=== PATIENT | female | born 1975 | race African-American/Black ===

== ENCOUNTER 2017-10-07 16:25 | Emergency (ER) | payer OTHER ==
[2017-10-07 16:35] VITALS: BP 139/95; PULSE 107; TEMP 98.4; BMI 24.9
--- NOTE | 2017-10-07 17:42 | PDOC ---
History of Present Illness - General Chief Complaint: Toothache Stated Complaint: TOOTH ACHE Time Seen by Provider: 10/07/17 16:55 - History of Present Illness Initial Comments: 10/07/17 17:42 CHIEF COMPLAINT: multiple symptoms HISTORY OF PRESENT ILLNESS: 42 yo F with hx of HTN presents to [facility] with tooth pain, "clogged ears," and diarrhea x 2 days. Initially patient states that these symptoms began 3 days ago but then later stated that the symptoms have been persistent for "a few months." She reports chills but no fever and that "I might have vomited a few times in the last few months." PAST MEDICAL HISTORY: Denies past medical history FAMILY HISTORY: Denies SOCIAL HISTORY: Daily smoker, daily alcohol intake. SURGICAL HISTORY: Denies ALLERGIES: doxycycline REVIEW OF SYSTEMS General/Constitutional: Denies fever or chills. Denies weakness, weight change. HEENT: "My ears are clogged." "I have a sore throat." Denies change in vision. Cardiovascular: Denies chest pain or shortness of breath. Respiratory: Denies wheezing, or hemoptysis. Gastrointestinal: Diarrhea. Genitourinary: Denies dysuria, frequency, or change in urination. Musculoskeletal: Denies joint or muscle swelling or pain. Denies neck or back pain. Skin and breasts: Denies rash or easy bruising. Neurologic: Denies headache, vertigo, loss of consciousness, or loss of sensation. PHYSICAL EXAM General Appearance: Well-appearing, appropriately dressed. No apparent distress. HEENT: Cerumen impaction b/l. EOMI, PERRLA. No conjunctival pallor. No photophobia, scleral icterus. Respiratory/Chest: Lungs CTAB. No shortness of breath, chest tenderness, respiratory distress, accessory muscle use. No crackles, rales, rhonchi, stridor , wheezing, dullness Cardiovascular: RRR. S1, S2. Gastrointestinal/Abdominal: Hyperactive bowel sounds. Abdomen soft, non- distended. No tenderness or rebound tenderness. No organomegaly, pulsatile mass, guarding, hernia, hepatomegaly, splenomegaly. Musculoskeletal/Extremities: Normal inspection. FROM of all extremities, normal capillary refill. Pelvis Stable. No CVA tenderness. No tenderness to extremities, pedal edema, swelling, erythema or deformity. Integumentary: Appropriate color, dry, warm. No cyanosis, erythema, jaundice or rash Neurologic: die turner II-XII intact. Fully oriented, alert. Appropriate mood/affect. Motor strength 5/5. No appreciable EOM palsy, facial droop or sensory deficit. 10/07/17 17:54 Past History - Past Medical History Allergies/Adverse Reactions: Allergies Allergy/AdvReac Type Severity Reaction Status Date / Time doxycycline hyclate Allergy Vomiting Verified 10/07/17 16:35 [From Doryx] Home Medications: Ambulatory Orders No Home Medications 0 dose .ROUTE UTDICT 11/07/12 Amlodipine Besylate 5 mg PO DAILY 10/07/17 Amoxicillin/Potassium Clav [Augmentin 875-125 Tablet] 1 each PO BID #14 tablet 10/07/17 Hydrochlorothiazide [Hctz -] 25 mg PO DAILY 10/07/17 Pseudoephedrine HCl [Sudafed 12 Hour] 120 mg PO BID #10 tablet.er 10/07/17 COPD: No HTN: Yes - Suicide/Smoking/Psychosocial Hx Smoking Status: Yes Smoking History: Never smoked Number of Cigarettes Smoked Daily: 5 Information on smoking cessation initiated: No *Physical Exam - Vital Signs Last Vital Signs Temp Pulse Resp BP Pulse Ox 98.4 F 107 H 20 139/95 99 10/07/17 16:32 10/07/17 16:32 10/07/17 16:32 10/07/17 16:32 10/07/17 16:32 Medical Decision Making - Medical Decision Making 10/07/17 18:00 42 yo F with hx of HTN presents to [facility] with tooth pain, "clogged ears," and diarrhea x 2 days. Patient is well appearing on exam, but does have impacted cerumen to b/l ears. -Strep swab sent *DC/Admit/Observation/Transfer Diagnosis at time of Disposition: Tooth pain, Strep pharyngitis, Impacted cerumen of both ears - Discharge Dispostion Disposition: HOME Admit: No - Prescriptions Prescriptions: Amoxicillin/Potassium Clav [Augmentin 875-125 Tablet] 1 each PO BID #14 tablet Pseudoephedrine HCl [Sudafed 12 Hour] 120 mg PO BID #10 tablet.er - Referrals - Patient Instructions Printed Discharge Instructions: DI for Cerumen Impaction, DI for Dental Pain, DI for Strep Throat Additional Instructions: Please take medications as prescribed. Follow up with a primary care doctor next week for further evaluation of your chronic symptoms. If you develop any fever unrelieved by Tylenol or Motrin, severe abdominal pain, or any new or worsening symptoms, please return to the ER. - Post Discharge Activity Forms/Work/School Notes: Back to Work
== END 2017-10-07 18:21 | disposition home or self-care (01) ==
LOC: JERFT 16:25
DX: J02.0 Streptococcal pharyngitis (principal); B95.0 Streptococcus, group A, as the cause of diseases classified elsewhere; H61.23 Impacted cerumen, bilateral
CPT/HCPCS: 87070; 87430; 99281-25

== ENCOUNTER 2018-10-23 17:01 | Emergency (ER) | payer OTHER ==
--- NOTE | 2018-10-23 17:12 | PDOC ---
Rapid Medical Evaluation Chief Complaint: Pain Time Seen by Provider: 10/23/18 17:11 Medical Evaluation: Allergies Allergy/AdvReac Type Severity Reaction Status Date / Time doxycycline hyclate Allergy Vomiting Verified 10/07/17 16:35 [From Doryx] 10/23/18 17:11 I have performed a brief in person evaluation of this patient. The patient's CC: abdominal pain HPI: Pt is a 43 YO female who complains of abd pain and vaginal bleeding x 2 weeks. PE: Skin: Clear Heart: RRR Lungs: Clear MS. moves all extremities without difficulty Neuro: Alert and oriented Psch: appropriate affect Abd protocol The patient will proceed to main ED for further evaluation. Discharge Disposition - Diagnosis Abdominal pain Qualifiers: Abdominal location: generalized Qualified Code(s): R10.84 - Generalized abdominal pain - Referrals - Patient Instructions - Post Discharge Activity
[2018-10-23 17:16] VITALS: BMI 27.4
--- NOTE | 2018-10-23 17:42 | PDOC ---
History of Present Illness - General Chief Complaint: Pain Stated Complaint: Vaginal Bleeding Time Seen by Provider: 10/23/18 17:11 History Source: Patient - History of Present Illness Timing/Duration: reports: constant Past History - Past Medical History Allergies/Adverse Reactions: Allergies Allergy/AdvReac Type Severity Reaction Status Date / Time doxycycline hyclate Allergy Vomiting Verified 10/23/18 17:11 [From Doryx] Home Medications: Ambulatory Orders Chlorthalidone 50 mg PO DAILY 10/23/18 COPD: No HTN: Yes - Suicide/Smoking/Psychosocial Hx Smoking Status: Yes Smoking History: Never smoked Number of Cigarettes Smoked Daily: 5 Hx Alcohol Use: No Drug/Substance Use Hx: No Review of Systems - Review of Systems Constitutional: No: Chills, Fever, Weakness ABD/GI: Yes: Abdominal cramping. No: Nausea, Vomiting : No: Dysuria *Physical Exam - Vital Signs Last Vital Signs Temp Pulse Resp BP Pulse Ox 98.6 F 113 H 17 159/117 H 98 10/23/18 17:12 10/23/18 17:12 10/23/18 17:12 10/23/18 17:12 10/23/18 17:12 - Physical Exam General Appearance: Yes: Appropriately Dressed. No: Apparent Distress HEENT: positive: Normal Voice Neck: positive: Supple Respiratory/Chest: negative: Respiratory Distress Gastrointestinal/Abdominal: positive: Soft. negative: Tender Integumentary: positive: Dry, Warm Neurologic: positive: Fully Oriented, Alert, Normal Mood/Affect Moderate Sedation - Procedure Monitoring Vital Signs: Procedure Monitoring Vital Signs Temperature 98.6 F 10/23/18 17:12 Pulse Rate 113 H 10/23/18 17:12 Respiratory Rate 17 10/23/18 17:12 Blood Pressure 159/117 H 10/23/18 17:12 O2 Sat by Pulse Oximetry (%) 98 10/23/18 17:12 ED Treatment Course - LABORATORY CBC & Chemistry Diagram: 10/23/18 17:30 10/23/18 17:30 Medical Decision Making - Medical Decision Making 10/23/18 17:40 43 yo F, HTN, fibroids, multiparous, possible fibroids, here with vaginal bleeding 2 weeks. Patient states she gets monthly periods, but at times has experience irregular menses. Last normal period was 07/2018 and has not bled until 2 weeks ago. States bleeding varies in amount and now bleeding lightly. Also reports lower abdominal cramping which is typical of her menses but usually only present during the first 2 days. Took a home test a month ago that was negative. No weakness or dizziness See exam DUB Neg preg test at home 1 month ago Well meme but hypertensive and tachy (states did not take BP meds today) -labs -IVF -reassess 10/23/18 17:49 10/23/18 19:00 Labs unremarkable here. Repeat HR 100. BP remains elevated. Pt asymptomatic from BP stand point. Instructed to take her medication as soon as she gets home. Reasons to return discussed with patient. Patient to follow-up with [facility] for further evaluation for her dysfunctional uterine bleeding 10/23/18 19:20 *DC/Admit/Observation/Transfer Diagnosis at time of Disposition: DUB (dysfunctional uterine bleeding) - Discharge Dispostion Disposition: HOME Condition at time of disposition: Stable - Referrals Referrals: Julianne Marrero [Primary Care Provider] - - Patient Instructions Additional Instructions: Please follow-up with your [facility] for further evaluation for your irregular vaginal bleeding. Your labs and urine were all negative today Your blood pressure was elevated in the ED. Please take your medication as soon as you get home. - Post Discharge Activity
[2018-10-23] MEDS ORDERED: ACETAMINOPHEN 325 MG TABLET (FP) PO ONE (17:43)
[2018-10-23] MEDS ORDERED: SODIUM CHLORIDE 1,000 ML IV STA (17:47)
[2018-10-23] MEDS ORDERED: ACETAMINOPHEN 325 MG TABLET (FP) ONE (17:50)
[2018-10-23 17:56] LABS: BASO % 0.8 % (0-2.0); EOS % 0.3 % (0-4.5); HEMATOCRIT 44.4 % (32.4-45.2); HEMOGLOBIN 15.7 GM/dL (10.7-15.3); LYMPH % 24.5 % (8-40); MCH 36.1 pg (25.7-33.7); MCHC 35.5 g/dl (32.0-36.0); MEAN CELL VOLUME 101.9 fl (80-96); MEAN PLT VOLUME 8.2 fl (7.5-11.1); MONO % 6.1 % (3.8-10.2); NEUT % 68.3 % (42.8-82.8); PLATELET COUNT 432 K/MM3 (134-434); RBC 4.36 M/mm3 (3.60-5.2); RDW 14.9 % (11.6-15.6); WHITE BLOOD COUNT 5.5 K/mm3 (4.0-10.0)
[2018-10-23 18:22] LABS: ALBUMIN 4.8 g/dl (3.4-5.0); ALK PHOS 105 U/L (45-117); ANION GAP 13 MMOL/L (8-16); BILIRUBIN,TOTAL 0.6 mg/dL (0.2-1); BLOOD UREA NITROGEN 16 mg/dL (7-18); CALCIUM 9.7 mg/dL (8.5-10.1); CHLORIDE 92 mmol/L (98-107); CO2 28 mmol/L (21-32); CREATININE 0.7 mg/dL (0.55-1.3); GLUCOSE,RANDOM 84 mg/dL (74-106); LIPASE 145 U/L (73-393); POTASSIUM 4.1 mmol/L (3.5-5.1); SGOT/AST 54 U/L (15-37); SGPT/ALT 41 U/L (13-61); SODIUM 133 mmol/L (136-145); TOT PROT 9.9 g/dl (6.4-8.2)
[2018-10-23 18:38] LABS: URINE APPEARANCE SLCLOUDY; URINE BILIRUBIN NEGATIVE (<2.0 mg/dL); URINE COLOR YELLOW; URINE GLUCOSE (UA) NEGATIVE (NEGATIVE); URINE KETONE NEGATIVE (NEGATIVE); URINE LEUK ESTERASE NEGATIVE (NEGATIVE); URINE NITRITE NEGATIVE (NEGATIVE); URINE PROTEIN 2+ (NEGATIVE); URINE UROBILINOGEN NEGATIVE mg/dL (0.2-1.0)
[2018-10-23 18:44] VITALS: BP 149/115; PULSE 100; TEMP 98
[2018-10-23 21:22] LABS: EPI CELLS RARE /HPF (FEW); URINE MUCUS RARE
== END 2018-10-23 19:38 | disposition home or self-care (01) ==
LOC: JER 17:01
PROC: 3E0337Z Introduction of Electrolytic and Water Balance Substance into Peripheral Vein, Percutaneous Approach (ICD-10-PCS; principal; 2018-10-23)
DX: N93.8 Other specified abnormal uterine and vaginal bleeding (principal); I10 Essential (primary) hypertension; Z87.42 Personal history of other diseases of the female genital tract
CPT/HCPCS: 36415; 80053; 81003; 81015; 83690; 84703; 85025; 96360; 99285-25; J7030